=== PATIENT | male | born 1930 | race African-American/Black ===

== ENCOUNTER 2016-06-12 09:31 | Emergency (ER) | payer OTHER ==
[~2016-06-12] VITALS: Ht 172.7 cm; Wt 65.0 kg
[~2016-06-12 09:31] MED LIST: CHOLMIS5 PO
[2016-06-12 09:35] VITALS: BP 199/89; PULSE 88; RESP 20; TEMP 97.4; O2SAT 95
[2016-06-12 09:42] VITALS: BP 180/83; PULSE 72
[2016-06-12] MEDS ORDERED: ACETAMINOPHEN 325 MG TAB PO ONE (10:00)
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
[2016-06-12] MEDS ORDERED: CYCL5TAB PO (10:35)
== END 2016-06-12 11:02 | disposition home or self-care (01) ==
LOC: NEPK 09:31
DX: S16.1XXA Strain of muscle, fascia and tendon at neck level, initial encounter (principal); M54.5 Low back pain; V43.52XA Car driver injured in collision with other type car in traffic accident, initial encounter; Y92.410 Unspecified street and highway as the place of occurrence of the external cause
CPT/HCPCS: 72100; 72170; 99284

== ENCOUNTER 2017-03-22 09:37 | Emergency (ER) | payer OTHER, MEDICAID ==
[~2017-03-22] VITALS: Ht 180.3 cm; Wt 60.0 kg
[~2017-03-22 09:37] MED LIST changes: -CHOLMIS5 PO; +CYCL5TAB PO
[2017-03-22 09:39] VITALS: BP 181/76; PULSE 70; RESP 13; TEMP 98.1; O2SAT 100
--- NOTE | 2017-03-22 09:58 | PD ---
HPI Chief Complaint: Cold / Flu Symptoms Time Seen by Provider: 09:48 Travel History International Travel<30 days: No Contact w/Intl Traveler<30days: No Traveled to known affect area: No History of Present Illness HPI 87-year-old male presents to the emergency department requesting a "checkup". Patient states that he felt a little weak this morning, but has not eaten his breakfast. He feels fine now. He denies any falls or syncope. He denies any headaches. No fevers or chills. No chest pain. No shortness of breath. No abdominal pain. No nausea, vomiting, diarrhea. Patient denies any cough or cold symptoms. When asked why he is here he states that his "little girlfriend wanted me to get checked up". He has no complaints at this time and states that he feels fine. Patient is alert and oriented to person, place, time. When asked if there is anything that I can help him with, he states that there isn't an he feels fine. Mild Severity. PFSH Past Medical History High Cholesterol: Yes Hypertension: Yes Past Surgical History Appendectomy: Yes Social History Alcohol Use: Yes Tobacco Use: No Substance Use: No Allergies-Medications (Allergen,Severity, Reaction): Coded Allergies: No Known Allergies (Unverified , 06/12/16) Reported Meds & Prescriptions Reported Meds & Active Scripts Active Active Prescriptions or Reported Medications Unobtainable Review of Systems Except as stated in HPI: all other systems reviewed are Neg Physical Exam Narrative GENERAL: Well-nourished, well-developed elderly male patient, ambulatory with a steady gait. Afebrile. Patient is alert and oriented to person, place, time. SKIN: Focused skin assessment warm/dry. HEAD: Normocephalic. Atraumatic. EYES: No scleral icterus. No injection or drainage. NECK: Supple, trachea midline. No JVD or lymphadenopathy. CARDIOVASCULAR: Regular rate and rhythm without murmurs, gallops, or rubs. RESPIRATORY: Breath sounds equal bilaterally. No accessory muscle use. Lungs sounds are clear to auscultation. GASTROINTESTINAL: Abdomen soft, non-tender, nondistended. MUSCULOSKELETAL: No cyanosis, or edema. BACK: Nontender without obvious deformity. No CVA tenderness. Data Data Last Documented VS Vital Signs Date Time Temp Pulse Resp B/P (MAP) Pulse Ox O2 Delivery O2 Flow Rate FiO2 03/22/17 09:39 98.1 70 13 181/76 (413) 100 MDM Medical Decision Making Medical Screen Exam Complete: Yes Emergency Medical Condition: Yes Medical Record Reviewed: Yes Differential Diagnosis Well checkup versus medical clearance versus cold symptoms Narrative Course 87-year-old male presents to the emergency department requesting a "checkup". He has no complaints or symptoms at this time and states that he feels fine. Patient answers all questions appropriately. Physical exam shows no acute abnormality. Vital signs are stable. Patient is instructed to follow-up with his primary care physician. The patient was discharged in stable condition with instructions, including return instructions and follow up instructions. Diagnosis Primary Impression: Well adult health check Referrals: Primary Care Physician call for appointment Patient Instructions: General Instructions, Wellness Visit for Adults (GEN) Additional Instructions: Follow-up with your primary care physician. Return to the emergency department for any acute worsening of symptoms. Med/Other Pt SpecificInfo: No Change to Meds Scripts Unable to Obtain Active Prescriptions or Reported Meds Disposition: 01 DISCHARGE HOME Condition: Stable Nicole Guillermo Mar 22, 2017 09:58
== END 2017-03-22 10:19 | disposition home or self-care (01) ==
LOC: NEPD 09:37
DX: Z03.89 Encounter for observation for other suspected diseases and conditions ruled out (principal)
CPT/HCPCS: 99281